=== PATIENT | female | born 1960 | race Caucasian/White ===

== ENCOUNTER 2020-03-25 12:14 | Inpatient (IN) ==
[2020-03-25] MEDS ORDERED: SODIUM CHLORIDE 0.9% 1,000 ML IV STA (13:29)
[2020-03-25 13:45] LABS: Basophils % 0.2 % (0.0-0.8); Eosinophils % 0.2 % (0.00-10.9); Immature Granulocytes % 0.8 %; Immature Granulocytes Absolute 0.07 #; Lymphocytes % 10.9 % (21.3-54.2); Mean Corpuscular HGB Conc 33.3 GM/DL (32-36); Mean Corpuscular Volume 94.5 FL (87-102); Mean Platelet Volume 9.9 FL (9.6-12.0); Monocytes % 7.8 % (1.7-12.7); Neutrophils % 80.1 % (38.7-73.9); Platelet Count 208 T/CUMM (130-400); Red Blood Count 3.81 MC/CUMM (3.8-5.5); Red Cell Distribution Width 13.4 % (9.3-17.3)
[2020-03-25 13:54] LABS: Alanine Aminotransferase 41 U/L (13-56); Albumin 3.5 G/DL (3.4-5.0); Alkaline Phosphatase 86 U/L (45-117); Aspartate Amino Transferase 56 U/L (0-37); Blood Urea Nitrogen 93 MG/DL (7-18); Calcium 8.3 MG/DL (8.5-10.1); Estimated Glom Filtration Rate 3 ML/MIN; Glucose 129 MG/DL (74-106); Osmolality,Calculated 290.8 MOS/KG (273-304); Total Protein 7.6 G/DL (6.4-8.3)
[2020-03-25 13:57] LABS: PT Patient Result 10.5 SECS (9.8-11.9)
[2020-03-25 14:04] LABS: Bacteria,Urine Occasional /HPF (Few); Bilirubin,Urine Negative (Negative); Blood, Urine Negative (Negative); Glucose,Urine (UA) Negative (Negative); Hyaline Casts,Urine 38 /LPF (0-3); Ketones,Urine Negative (Negative); Mucus,Urine Occasional /LPF (Occasional); Nitrite,Urine Negative (Negative); Protein,Urine 100 MG/DL; Squamous Epithelial Cell,Urine Occasional /HPF (0-10); Urine Appearance CLOUDY (Clear); Urine Color Amber (Yellow); Urine Specific Gravity 1.018 (1.001-1.035); Urine Urobilinogen < 2.0 EU/DL (0.2-1.0); WBC,Urine 6 /HPF (0-6)
[2020-03-25 14:06] LABS: Barbiturates Screen,Urine Negative (Negative); Benzodiazepines Screen,Urine Negative (Negative); Cannabinoid Screen,Urine Negative (Negative); Opiate Screen,Urine Negative (Negative); Phencyclidine Screen,Urine Negative (Negative)
[2020-03-25] MEDS ORDERED: GLUCAGON 1 MG VIAL IM PRN ×2 (15:38)
[2020-03-25] MEDS ORDERED: DEXTROSE 50% 25 GM/50 ML VIAL IV PRN (15:38)
[2020-03-25] MEDS ORDERED: ONDANSETRON 4 MG/2 ML VIAL IV PRN (15:38)
[2020-03-25 16:17] LABS: Band Neutrophils 5 % (0-10); Lymphocytes 9 % (20-55); Segmented Neutrophils 80 % (50-85); Total Cells Counted 100
[2020-03-25 16:18] LABS: Platelet Estimate Normal
[2020-03-25] MEDS: SODIUM CHLORIDE 0.9% 1,000 ML IV SCH (16:55)
[2020-03-25] MEDS: INSULIN LISPRO 100 UNIT/ML SUBCUT SCH ×2 (16:55→20:48)
[2020-03-25] MEDS: PHENYLEPHRINE DRIP 40 MG/250 ML PREMIX IV PRN ×2 (16:55→21:59)
[2020-03-25 19:10] LABS: Hematocrit 36.6 VOL% (35.7-47.0)
[2020-03-25] MEDS: ALBUTEROL/IPRATROPIUM 3 ML NEB RESP TX SCH (19:28)
[2020-03-25] MEDS: DEXTROSE 50% 25 GM/50 ML VIAL IV PRN (20:47)
[2020-03-26] MEDS: ALBUTEROL/IPRATROPIUM 3 ML NEB RESP TX SCH ×4 (00:03→19:21)
[2020-03-26] MEDS: PHENYLEPHRINE DRIP 40 MG/250 ML PREMIX IV PRN ×8 (01:32→22:00)
[2020-03-26] MEDS: DEXTROSE 10% 1,000 ML IV SCH ×2 (01:50→22:21)
[2020-03-26 03:33] LABS: Alanine Aminotransferase 39 U/L (13-56); Albumin 2.9 G/DL (3.4-5.0); Alkaline Phosphatase 86 U/L (45-117); Aspartate Amino Transferase 54 U/L (0-37); Blood Urea Nitrogen 97 MG/DL (7-18); Calcium 8.1 MG/DL (8.5-10.1); Estimated Glom Filtration Rate 3 ML/MIN; Glucose 53 MG/DL (74-106); Osmolality,Calculated 292.4 MOS/KG (273-304); Total Protein 7.4 G/DL (6.4-8.3); Troponin I < 0.015 NG/ML (0.00-0.045)
[2020-03-26 04:31] LABS: PT Patient Result 10.5 SECS (9.8-11.9)
[2020-03-26 04:41] LABS: Hematocrit 37.7 VOL% (35.7-47.0); Hemoglobin 12.3 GM/DL (12.0-16.0)
[2020-03-26] MEDS: DEXTROSE 50% 25 GM/50 ML VIAL IV PRN ×2 (05:00→08:36)
[2020-03-26] MEDS: SODIUM CHLORIDE 0.9% 1,000 ML IV SCH (05:33)
[2020-03-26 05:36] LABS: Basophils # 0.1 10*3/uL (0.0-0.2); Basophils % 0.5 % (0.0-0.8); Eosinophils % 0.1 % (0.00-10.9); Hematocrit 36.7 VOL% (35.7-47.0); Hemoglobin 11.9 GM/DL (12.0-16.0); Immature Granulocytes % 1.2 %; Immature Granulocytes Absolute 0.14 #; Lymphocytes # 0.9 10*3/uL (1.4-4.0); Lymphocytes % 7.5 % (21.3-54.2); Mean Corpuscular HGB Conc 32.4 GM/DL (32-36); Mean Corpuscular Volume 94.1 FL (87-102); Mean Platelet Volume 10.1 FL (9.6-12.0); Monocytes % 11.3 % (1.7-12.7); Neutrophils % 79.4 % (38.7-73.9); Platelet Count 247 T/CUMM (130-400); Red Cell Distribution Width 13.4 % (9.3-17.3)
[2020-03-26 06:01] LABS: Band Neutrophils 11 % (0-10); Lymphocytes 6 % (20-55); Microcytosis Slight; Myelocytes 1 %; Segmented Neutrophils 71 % (50-85); Total Cells Counted 100
[2020-03-26 06:02] LABS: Platelet Estimate Normal
[2020-03-26 07:21] LABS: Hematocrit 35.7 VOL% (35.7-47.0); Hemoglobin 11.6 GM/DL (12.0-16.0)
[2020-03-26] MEDS: INSULIN LISPRO 100 UNIT/ML SUBCUT SCH ×4 (07:58→22:21)
[2020-03-26] MEDS: PANTOPRAZOLE 40 MG VIAL IV SCH ×2 (09:48→22:01)
[2020-03-26] MEDS: SODIUM BICARB INJ 150 MEQ in DEXTROSE 5% 850 ML IV SCH ×2 (09:48→20:20)
[2020-03-26] MEDS: HYDROCORTISONE 100 MG VIAL IV SCH ×2 (10:03→17:09)
[2020-03-26] MEDS: POLYETHYLENE GLYCOL POWDER 17 GM PACK PO SCH (22:07)
[2020-03-27] MEDS: ALBUTEROL/IPRATROPIUM 3 ML NEB RESP TX SCH ×4 (00:08→19:07)
[2020-03-27] MEDS: INSULIN LISPRO 100 UNIT/ML SUBCUT SCH ×6 (00:27→21:08)
[2020-03-27] MEDS: PHENYLEPHRINE DRIP 40 MG/250 ML PREMIX IV PRN ×2 (02:20→09:55)
[2020-03-27 04:20] LABS: Basophils % 0.4 % (0.0-0.8); Hematocrit 32.1 VOL% (35.7-47.0); Hemoglobin 10.8 GM/DL (12.0-16.0); Immature Granulocytes % 1.8 %; Immature Granulocytes Absolute 0.09 #; Lymphocytes # 0.4 10*3/uL (1.4-4.0); Lymphocytes % 7.9 % (21.3-54.2); Mean Corpuscular HGB Conc 33.6 GM/DL (32-36); Mean Corpuscular Volume 90.7 FL (87-102); Mean Platelet Volume 9.6 FL (9.6-12.0); Monocytes % 8.6 % (1.7-12.7); Neutrophils % 81.3 % (38.7-73.9); Platelet Count 222 T/CUMM (130-400); Red Blood Count 3.54 MC/CUMM (3.8-5.5); Red Cell Distribution Width 13.3 % (9.3-17.3); White Blood Count 4.9 T/CUMM (4-12)
[2020-03-27 04:21] LABS: Calcium 7.6 MG/DL (8.5-10.1); Osmolality,Calculated 310.7 MOS/KG (273-304)
[2020-03-27 05:35] LABS: Band Neutrophils 17 % (0-10); Hypochromasia Slight; Lymphocytes 7 % (20-55); Metamyelocytes 3 %; Myelocytes 1 %; Platelet Estimate Normal; Segmented Neutrophils 64 % (50-85); Total Cells Counted 100
[2020-03-27] MEDS: HYDROCORTISONE 100 MG VIAL IV SCH ×2 (05:48→16:20)
[2020-03-27] MEDS: SODIUM BICARB INJ 150 MEQ in DEXTROSE 5% 850 ML IV SCH ×2 (06:24→16:19)
[2020-03-27] MEDS: PANTOPRAZOLE 40 MG VIAL IV SCH ×2 (09:55→21:11)
[2020-03-27] MEDS: POLYETHYLENE GLYCOL POWDER 17 GM PACK PO SCH ×3 (09:55→21:09)
[2020-03-27] MEDS: DEXTROSE 10% 1,000 ML IV SCH (17:22)
[2020-03-27] MEDS: LACTULOSE 20 GM/30 ML UDCUP PO SCH (21:10)
[2020-03-28] MEDS: INSULIN LISPRO 100 UNIT/ML SUBCUT SCH ×6 (00:22→20:29)
[2020-03-28] MEDS: ALBUTEROL/IPRATROPIUM 3 ML NEB RESP TX SCH ×4 (00:42→19:07)
[2020-03-28] MEDS: ACETAMINOPHEN 325 MG TABLET PO PRN (00:50)
[2020-03-28] MEDS: SODIUM BICARB INJ 150 MEQ in DEXTROSE 5% 850 ML IV SCH (02:11)
[2020-03-28 04:12] LABS: Basophils % 0.5 % (0.0-0.8); Hematocrit 31.5 VOL% (35.7-47.0); Hemoglobin 10.9 GM/DL (12.0-16.0); Immature Granulocytes % 1.2 %; Immature Granulocytes Absolute 0.05 #; Lymphocytes # 0.4 10*3/uL (1.4-4.0); Lymphocytes % 9.7 % (21.3-54.2); Mean Corpuscular HGB Conc 34.6 GM/DL (32-36); Mean Corpuscular Volume 88.5 FL (87-102); Mean Platelet Volume 9.3 FL (9.6-12.0); Monocytes % 8.2 % (1.7-12.7); Neutrophils % 80.4 % (38.7-73.9); Platelet Count 219 T/CUMM (130-400); Red Blood Count 3.56 MC/CUMM (3.8-5.5)
[2020-03-28 04:31] LABS: Calcium 8.9 MG/DL (8.5-10.1); Osmolality,Calculated 299.5 MOS/KG (273-304)
[2020-03-28 04:46] LABS: Band Neutrophils 18 % (0-10); Lymphocytes 15 % (20-55); Platelet Estimate Normal; Segmented Neutrophils 56 % (50-85); Total Cells Counted 100
[2020-03-28 04:47] LABS: Hypochromasia Slight; Microcytosis Slight
[2020-03-28] MEDS: HYDROCORTISONE 100 MG VIAL IV SCH (04:58)
[2020-03-28] MEDS: LACTULOSE 20 GM/30 ML UDCUP PO SCH (08:26)
[2020-03-28] MEDS: PANTOPRAZOLE 40 MG VIAL IV SCH ×2 (08:27→21:14)
[2020-03-28] MEDS ORDERED: MAGNESIUM SULF RIDER 2 GM in PREMIX 1 EACH IV ONE (09:00)
[2020-03-28] MEDS: POTASSIUM CHLORIDE INJ 10 MEQ in SODIUM CHLORIDE 0.45% 1,000 ML IV SCH (10:05)
[2020-03-28] MEDS ORDERED: POTASSIUM CHLORIDE 20 MEQ TABLET PO ONE (11:00)
[2020-03-28] MEDS ORDERED: MORPHINE 4 MG/1 ML VIAL IV ONE (11:15)
[2020-03-28] MEDS: POTASSIUM CHLORIDE RIDER 10 MEQ in PREMIX 1 EACH IV SCH ×2 (11:42→13:48)
[2020-03-28] MEDS: DEXTROSE 10% 1,000 ML IV SCH (14:04)
[2020-03-28] MEDS: BUDESONIDE/FORMOTEROL 80-4.5 INHALER 6.9 GM INH SCH (21:14)
[2020-03-29] MEDS: POTASSIUM CHLORIDE INJ 10 MEQ in SODIUM CHLORIDE 0.45% 1,000 ML IV SCH ×2 (00:22→14:16)
[2020-03-29] MEDS: ALBUTEROL/IPRATROPIUM 3 ML NEB RESP TX SCH ×4 (01:00→19:59)
[2020-03-29] MEDS: INSULIN LISPRO 100 UNIT/ML SUBCUT SCH ×6 (01:05→21:28)
[2020-03-29 06:09] LABS: Basophils % 0.7 % (0.0-0.8); Hematocrit 30.8 VOL% (35.7-47.0); Hemoglobin 10.1 GM/DL (12.0-16.0); Immature Granulocytes Absolute 0.09 #; Lymphocytes # 0.5 10*3/uL (1.4-4.0); Lymphocytes % 11.2 % (21.3-54.2); Mean Corpuscular HGB Conc 32.8 GM/DL (32-36); Mean Corpuscular Volume 92.8 FL (87-102); Mean Platelet Volume 9.1 FL (9.6-12.0); Monocytes % 7.3 % (1.7-12.7); NRBC # 0.02 10*3/uL; Neutrophils % 78.8 % (38.7-73.9); Platelet Count 243 T/CUMM (130-400); Red Blood Count 3.32 MC/CUMM (3.8-5.5); White Blood Count 4.6 T/CUMM (4-12)
[2020-03-29 06:36] LABS: Band Neutrophils 16 % (0-10); Hypochromasia 2+; Lymphocytes 12 % (20-55); Metamyelocytes 1 %; Nucleated Red Blood Cells 1 (0-5); Platelet Estimate Normal; Segmented Neutrophils 64 % (50-85); Total Cells Counted 100
[2020-03-29 06:37] LABS: Polychromasia Few
[2020-03-29 06:38] LABS: Calcium 9.1 MG/DL (8.5-10.1); Osmolality,Calculated 297.4 MOS/KG (273-304)
[2020-03-29] MEDS: PANTOPRAZOLE 40 MG VIAL IV SCH ×2 (08:34→21:29)
[2020-03-29] MEDS: BUDESONIDE/FORMOTEROL 80-4.5 INHALER 6.9 GM INH SCH ×2 (09:25→21:29)
[2020-03-29] MEDS: ACETAMINOPHEN 325 MG TABLET PO PRN (12:15)
[2020-03-29] MEDS ORDERED: diphenhydrAMINE 50 MG/1 ML VIAL IV ONE (17:41)
[2020-03-29] MEDS ORDERED: ZIPRASIDONE 20 MG/1 ML VIAL IM ONE (17:41)
[2020-03-30] MEDS: ALBUTEROL/IPRATROPIUM 3 ML NEB RESP TX SCH ×4 (00:23→19:50)
[2020-03-30] MEDS: INSULIN LISPRO 100 UNIT/ML SUBCUT SCH ×6 (01:08→20:41)
[2020-03-30] MEDS: POTASSIUM CHLORIDE INJ 10 MEQ in SODIUM CHLORIDE 0.45% 1,000 ML IV SCH ×2 (02:47→13:42)
[2020-03-30 05:01] LABS: Basophils % 0.5 % (0.0-0.8); Hematocrit 31.1 VOL% (35.7-47.0); Hemoglobin 10.1 GM/DL (12.0-16.0); Immature Granulocytes % 1.6 %; Lymphocytes # 0.5 10*3/uL (1.4-4.0); Lymphocytes % 8.1 % (21.3-54.2); Mean Corpuscular HGB Conc 32.5 GM/DL (32-36); Mean Corpuscular Volume 95.4 FL (87-102); Monocytes % 6.3 % (1.7-12.7); NRBC # 0.04 10*3/uL; Neutrophils % 83.5 % (38.7-73.9); Platelet Count 219 T/CUMM (130-400); Red Blood Count 3.26 MC/CUMM (3.8-5.5); Red Cell Distribution Width 12.9 % (9.3-17.3); White Blood Count 6.2 T/CUMM (4-12)
[2020-03-30 05:20] LABS: Osmolality,Calculated 298.3 MOS/KG (273-304)
[2020-03-30 05:35] LABS: Band Neutrophils 4 % (0-10); Eosinophils 1 % (0-10); Lymphocytes 12 % (20-55); Platelet Estimate Normal; Segmented Neutrophils 82 % (50-85); Total Cells Counted 100
[2020-03-30 05:36] LABS: Hypochromasia Slight
[2020-03-30] MEDS: PANTOPRAZOLE 40 MG VIAL IV SCH ×2 (09:06→20:41)
[2020-03-30] MEDS: NICOTINE 21 MG/24 HR PATCH TRANSDERM PRN (09:07)
[2020-03-30] MEDS: BUDESONIDE/FORMOTEROL 80-4.5 INHALER 6.9 GM INH SCH ×2 (09:11→20:41)
[2020-03-30] MEDS ORDERED: hydrALAZINE 20 MG/1 ML VIAL IV PRN (11:40)
[2020-03-30] MEDS: ACETAMINOPHEN 325 MG TABLET PO PRN (20:40)
[2020-03-30] MEDS ORDERED: LEVOFLOXACIN INJ 750 MG in PREMIX 1 EACH IV SCH (22:30)
[2020-03-30 22:54] LABS: Basophils % 0.4 % (0.0-0.8); Hematocrit 34.7 VOL% (35.7-47.0); Hemoglobin 11.2 GM/DL (12.0-16.0); Immature Granulocytes % 1.6 %; Immature Granulocytes Absolute 0.16 #; Lymphocytes # 0.7 10*3/uL (1.4-4.0); Lymphocytes % 6.8 % (21.3-54.2); Mean Corpuscular HGB Conc 32.3 GM/DL (32-36); Mean Corpuscular Volume 96.1 FL (87-102); Mean Platelet Volume 8.9 FL (9.6-12.0); Monocytes % 6.3 % (1.7-12.7); NRBC # 0.04 10*3/uL; Neutrophils % 84.9 % (38.7-73.9); Platelet Count 209 T/CUMM (130-400); Red Blood Count 3.61 MC/CUMM (3.8-5.5); Red Cell Distribution Width 12.8 % (9.3-17.3); White Blood Count 9.7 T/CUMM (4-12)
[2020-03-30] MEDS: IBUPROFEN 600 MG TABLET PO PRN (22:59)
[2020-03-30] MEDS ORDERED: LORazepam 2 MG/1 ML VIAL ONE (23:50)
[2020-03-30 23:52] LABS: Bacteria,Urine Many /HPF (Few); Bilirubin,Urine Negative (Negative); Blood, Urine Large mg/dL (Negative); Glucose,Urine (UA) Negative (Negative); Hyaline Casts,Urine 68 /LPF (0-3); Ketones,Urine 5 mg/dL (Negative); Mucus,Urine Moderate /LPF (Occasional); Nitrite,Urine Positive (Negative); Protein,Urine 100 MG/DL; RBC,Urine 102 /HPF (0-4); Urine Appearance CLOUDY (Clear); Urine Color Yellow (Yellow); Urine Specific Gravity 1.019 (1.001-1.035); Urine Urobilinogen < 2.0 EU/DL (0.2-1.0); WBC,Urine 1695 /HPF (0-6)
[2020-03-31] MEDS ORDERED: LORazepam 2 MG/1 ML VIAL ONE (00:05)
[2020-03-31] MEDS ORDERED: LORazepam 2 MG/1 ML VIAL IV ONE ×2 (00:06→12:04)
[2020-03-31] MEDS: ALBUTEROL/IPRATROPIUM 3 ML NEB RESP TX SCH ×4 (00:12→19:53)
[2020-03-31] MEDS ORDERED: GENTAMICIN INJ 100 MG in PREMIX 1 EACH IV SCH (00:30)
[2020-03-31] MEDS: INSULIN LISPRO 100 UNIT/ML SUBCUT SCH ×6 (01:23→21:49)
[2020-03-31] MEDS ORDERED: GENTAMICIN INJ 500 MG in SODIUM CHLORIDE 0.9% 100 ML IV SCH (02:00)
[2020-03-31 04:32] LABS: Band Neutrophils 1 % (0-10); Lymphocytes 9 % (20-55); Segmented Neutrophils 86 % (50-85); Total Cells Counted 100
[2020-03-31 04:36] LABS: Hypochromasia 1+; Platelet Estimate Normal; Polychromasia Few
[2020-03-31] MEDS: POTASSIUM CHLORIDE INJ 10 MEQ in SODIUM CHLORIDE 0.45% 1,000 ML IV SCH (04:46)
[2020-03-31 05:29] LABS: Basophils % 0.2 % (0.0-0.8); Hemoglobin 10.6 GM/DL (12.0-16.0); Immature Granulocytes % 1.5 %; Immature Granulocytes Absolute 0.13 #; Lymphocytes # 0.8 10*3/uL (1.4-4.0); Lymphocytes % 8.9 % (21.3-54.2); Mean Corpuscular HGB Conc 32.1 GM/DL (32-36); Mean Corpuscular Volume 96.2 FL (87-102); Mean Platelet Volume 8.9 FL (9.6-12.0); NRBC # 0.03 10*3/uL; Neutrophils % 82.4 % (38.7-73.9); Platelet Count 190 T/CUMM (130-400); Red Blood Count 3.43 MC/CUMM (3.8-5.5); White Blood Count 8.9 T/CUMM (4-12)
[2020-03-31 05:46] LABS: Albumin 2.4 G/DL (3.4-5.0); Bilirubin,Total 0.4 MG/DL (0.2-1.0); Calcium 8.3 MG/DL (8.5-10.1); Osmolality,Calculated 312.3 MOS/KG (273-304); Total Protein 6.7 G/DL (6.4-8.3)
[2020-03-31 05:55] LABS: Band Neutrophils 2 % (0-10); Hypochromasia 1+; Lymphocytes 7 % (20-55); Nucleated Red Blood Cells 1 (0-5); Ovalocytes Slight; Platelet Estimate Adequate; Segmented Neutrophils 82 % (50-85); Total Cells Counted 100
[2020-03-31] MEDS: BUDESONIDE/FORMOTEROL 80-4.5 INHALER 6.9 GM INH SCH ×2 (10:06→20:19)
[2020-03-31] MEDS: LORazepam 2 MG/1 ML VIAL IV PRN ×2 (10:11)
[2020-03-31] MEDS: NICOTINE 21 MG/24 HR PATCH TRANSDERM PRN (10:14)
[2020-03-31] MEDS: PANTOPRAZOLE 40 MG VIAL IV SCH ×2 (10:18→20:11)
[2020-03-31] MEDS ORDERED: METOPROLOL TARTRATE 5 MG/5 ML VIAL IV ONE (11:54)
[2020-03-31] MEDS: POTASSIUM CHLORIDE INJ 40 MEQ in SODIUM CHLORIDE 0.45% 1,000 ML IV SCH (14:07)
[2020-03-31] MEDS ORDERED: DEXTROSE 50% 25 GM/50 ML VIAL IV PRN (16:45)
[2020-03-31] MEDS ORDERED: GLUCAGON 1 MG VIAL IM PRN (16:45)
[2020-03-31] MEDS: ACETAMINOPHEN 325 MG TABLET PO PRN (23:27)
[2020-04-01] MEDS: ALBUTEROL/IPRATROPIUM 3 ML NEB RESP TX SCH ×4 (00:12→20:01)
[2020-04-01] MEDS: IBUPROFEN 600 MG TABLET PO PRN (01:25)
[2020-04-01] MEDS: INSULIN LISPRO 100 UNIT/ML SUBCUT SCH ×6 (01:50→20:19)
[2020-04-01 06:10] LABS: Basophils % 0.2 % (0.0-0.8); Hematocrit 38.5 VOL% (35.7-47.0); Immature Granulocytes % 0.8 %; Immature Granulocytes Absolute 0.08 #; Lymphocytes % 10.6 % (21.3-54.2); Mean Corpuscular HGB Conc 31.2 GM/DL (32-36); Mean Platelet Volume 9.6 FL (9.6-12.0); Monocytes % 6.8 % (1.7-12.7); NRBC # 0.02 10*3/uL; Neutrophils % 81.6 % (38.7-73.9); Platelet Count 175 T/CUMM (130-400); Red Blood Count 3.89 MC/CUMM (3.8-5.5); Red Cell Distribution Width 13.2 % (9.3-17.3); White Blood Count 9.7 T/CUMM (4-12)
[2020-04-01 06:34] LABS: Calcium 8.9 MG/DL (8.5-10.1); Osmolality,Calculated 328.6 MOS/KG (273-304)
[2020-04-01] MEDS: PANTOPRAZOLE 40 MG VIAL IV SCH ×2 (08:49→20:20)
[2020-04-01] MEDS: POTASSIUM CHLORIDE INJ 40 MEQ in SODIUM CHLORIDE 0.45% 1,000 ML IV SCH (08:49)
[2020-04-01] MEDS ORDERED: METOPROLOL TARTRATE 5 MG/5 ML VIAL IV ONE (08:52)
[2020-04-01] MEDS: NICOTINE 21 MG/24 HR PATCH TRANSDERM PRN (08:55)
[2020-04-01] MEDS ORDERED: ACETAMINOPHEN INJ 1,000 MG in PREMIX 1 EACH IV ONE (08:57)
[2020-04-01] MEDS: ACETAMINOPHEN 325 MG TABLET PO PRN (08:57)
[2020-04-01] MEDS ORDERED: LEVOFLOXACIN INJ 750 MG in PREMIX 1 EACH IV ONE (09:00)
[2020-04-01] MEDS: BUDESONIDE/FORMOTEROL 80-4.5 INHALER 6.9 GM INH SCH ×2 (09:02→20:22)
[2020-04-01 10:04] LABS: ABG Base Excess 4.5 MMOL/L (-2.5-2.5); ABG HCO3 28.8 MMOL/L (20-26); ABG Oxygen Saturation 95.5 % (95-100); ABG PCO2 41.8 MM HG (35-48); ABG PH 7.456 (7.35-7.45); ABG PO2 84.7 MM HG (80-95); ABG TCO2 30.1 MMOL/L (23-27); Allen Test Positive
[2020-04-01] MEDS ORDERED: HALOPERIDOL 5 MG/ML AMP IV ONE (11:03)
[2020-04-01] MEDS ORDERED: HALOPERIDOL 5 MG/ML AMP ONE (11:23)
[2020-04-01] MEDS: LACTULOSE 20 GM/30 ML UDCUP NG SCH ×2 (11:35→18:20)
[2020-04-01 12:27] LABS: HIV Antigen/Antibody Result Nonreactive (Nonreactive)
[2020-04-01] MEDS: metroNIDAZOLE INJ 500 MG in PREMIX 1 EACH IV SCH (15:25)
[2020-04-01] MEDS: ASPIRIN EC 81 MG TABLET PO SCH (15:27)
[2020-04-01] MEDS: METOPROLOL TARTRATE 25 MG TABLET PO SCH ×2 (15:27→20:22)
[2020-04-01] MEDS: DEXT 5% NACL 0.45% KCL 40 MEQ 40 MEQ/1,000 ML BAG IV SCH (15:33)
[2020-04-01] MEDS ORDERED: HEPARIN 5,000 UNIT/1 ML VIAL SUBCUT SCH (16:00)
[2020-04-01] MEDS: ENOXAPARIN 80 MG/0.8 ML SYRINGE SUBCUT SCH (18:19)
[2020-04-01 18:23] LABS: Glucose,CSF 111 MG/DL (40-70)
[2020-04-01 18:28] LABS: Lymphocytes,CSF 71 %; Monocytes,CSF 29 %; Red Blood Cell,CSF 162 C/CUMM; White Blood Cell,CSF 2 C/CUMM
[2020-04-01 18:29] LABS: Appearance,CSF Clear
[2020-04-02] MEDS: ACETAMINOPHEN 325 MG TABLET PO PRN ×3 (00:18→23:53)
[2020-04-02] MEDS: INSULIN LISPRO 100 UNIT/ML SUBCUT SCH ×6 (00:18→20:44)
[2020-04-02] MEDS: metroNIDAZOLE INJ 500 MG in PREMIX 1 EACH IV SCH ×4 (00:24→23:53)
[2020-04-02] MEDS: LACTULOSE 20 GM/30 ML UDCUP NG SCH ×5 (00:24→23:52)
[2020-04-02] MEDS: ALBUTEROL/IPRATROPIUM 3 ML NEB RESP TX SCH ×2 (01:02→07:21)
[2020-04-02 05:54] LABS: Basophils % 0.2 % (0.0-0.8); Hematocrit 39.9 VOL% (35.7-47.0); Hemoglobin 12.2 GM/DL (12.0-16.0); Immature Granulocytes % 0.7 %; Immature Granulocytes Absolute 0.09 #; Lymphocytes # 1.7 10*3/uL (1.4-4.0); Lymphocytes % 13.9 % (21.3-54.2); Mean Corpuscular HGB Conc 30.6 GM/DL (32-36); Mean Corpuscular Volume 99.8 FL (87-102); Mean Platelet Volume 10.6 FL (9.6-12.0); Monocytes % 3.8 % (1.7-12.7); NRBC # 0.03 10*3/uL; Neutrophils % 81.4 % (38.7-73.9); Platelet Count 155 T/CUMM (130-400); Red Cell Distribution Width 13.4 % (9.3-17.3)
[2020-04-02 06:09] LABS: Alanine Aminotransferase 49 U/L (13-56); Albumin 2.5 G/DL (3.4-5.0); Alkaline Phosphatase 65 U/L (45-117); Aspartate Amino Transferase 59 U/L (0-37); Bilirubin,Total < 0.39 MG/DL (0.2-1.0); Blood Urea Nitrogen 77 MG/DL (7-18); Calcium 7.9 MG/DL (8.5-10.1); Estimated Glom Filtration Rate 19 ML/MIN; Ferritin 286.1 ng/ml (8-252); Glucose 269 MG/DL (74-106); Osmolality,Calculated 343.9 MOS/KG (273-304); Total Protein 6.7 G/DL (6.4-8.3)
[2020-04-02 06:51] LABS: Band Neutrophils 4 % (0-10); Lymphocytes 17 % (20-55); Nucleated Red Blood Cells 3 (0-5); Platelet Estimate Normal; Segmented Neutrophils 77 % (50-85); Total Cells Counted 100
[2020-04-02 06:52] LABS: Anisocytosis 2+; Macrocytosis Slight; Smudge Cells Few
[2020-04-02] MEDS ORDERED: MAGNESIUM SULF RIDER 2 GM in PREMIX 1 EACH IV PRN (08:38)
[2020-04-02] MEDS ORDERED: MAGNESIUM SULF RIDER 4 GM in PREMIX 1 EACH IV PRN (08:38)
[2020-04-02] MEDS: DEXT 5% NACL 0.45% KCL 40 MEQ 40 MEQ/1,000 ML BAG IV SCH (09:17)
[2020-04-02] MEDS: PANTOPRAZOLE 40 MG VIAL IV SCH ×2 (09:20→20:07)
[2020-04-02] MEDS: ASPIRIN EC 81 MG TABLET PO SCH (09:20)
[2020-04-02] MEDS: METOPROLOL TARTRATE 25 MG TABLET PO SCH ×3 (09:20→20:49)
[2020-04-02] MEDS: BUDESONIDE/FORMOTEROL 80-4.5 INHALER 6.9 GM INH SCH ×2 (09:21→20:49)
[2020-04-02] MEDS: POTASSIUM CHLORIDE INJ 40 MEQ in DEXTROSE 5% LACTATED RINGERS 1,000 ML IV SCH (10:40)
[2020-04-02] MEDS ORDERED: BISACODYL 10 MG SUPP RECTAL ONE (11:59)
[2020-04-02] MEDS: methylPREDNISolone SOD SUC 40 MG/1 ML VIAL IV SCH ×2 (12:30→18:39)
[2020-04-02] MEDS ORDERED: MAGNESIUM SULF RIDER 2 GM in PREMIX 1 EACH IV ONE (12:34)
[2020-04-02] MEDS ORDERED: POTASSIUM CHLORIDE 20 MEQ TABLET PO ONE (12:34)
[2020-04-02] MEDS: LEVALBUTEROL 1.25 MG/3 ML NEB RESP TX SCH ×2 (12:40→19:34)
[2020-04-02] MEDS: ENOXAPARIN 80 MG/0.8 ML SYRINGE SUBCUT SCH (18:37)
[2020-04-03] MEDS: INSULIN LISPRO 100 UNIT/ML SUBCUT SCH ×6 (00:36→20:31)
[2020-04-03] MEDS: LEVALBUTEROL 1.25 MG/3 ML NEB RESP TX SCH ×4 (00:58→19:22)
[2020-04-03] MEDS: methylPREDNISolone SOD SUC 40 MG/1 ML VIAL IV SCH ×3 (03:43→18:42)
[2020-04-03] MEDS: LACTULOSE 20 GM/30 ML UDCUP NG SCH ×3 (06:06→17:06)
[2020-04-03 07:03] LABS: Basophils % 0.2 % (0.0-0.8); Hematocrit 34.9 VOL% (35.7-47.0); Hemoglobin 10.4 GM/DL (12.0-16.0); Immature Granulocytes % 0.7 %; Immature Granulocytes Absolute 0.07 #; Lymphocytes # 0.6 10*3/uL (1.4-4.0); Lymphocytes % 6.2 % (21.3-54.2); Mean Corpuscular HGB Conc 29.8 GM/DL (32-36); Mean Corpuscular Volume 103.6 FL (87-102); Mean Platelet Volume 11.6 FL (9.6-12.0); Monocytes % 1.7 % (1.7-12.7); NRBC # 0.02 10*3/uL; Neutrophils % 91.2 % (38.7-73.9); Platelet Count 111 T/CUMM (130-400); Red Blood Count 3.37 MC/CUMM (3.8-5.5); Red Cell Distribution Width 13.8 % (9.3-17.3); White Blood Count 10.3 T/CUMM (4-12)
[2020-04-03 07:10] LABS: Calcium 8.2 MG/DL (8.5-10.1); Osmolality,Calculated 356.9 MOS/KG (273-304); Platelet Estimate Adequate
[2020-04-03 07:11] LABS: Anisocytosis 1+
[2020-04-03 07:12] LABS: Macrocytosis 1+
[2020-04-03 08:13] LABS: Band Neutrophils 2 % (0-10); Lymphocytes 1 % (20-55); Segmented Neutrophils 96 % (50-85); Total Cells Counted 100
[2020-04-03] MEDS ORDERED: LEVOFLOXACIN INJ 500 MG in PREMIX 1 EACH IV SCH (09:00)
[2020-04-03] MEDS: POTASSIUM CHLORIDE INJ 40 MEQ in DEXTROSE 5% LACTATED RINGERS 1,000 ML IV SCH (09:02)
[2020-04-03] MEDS: ACETAMINOPHEN 325 MG TABLET PO PRN (09:08)
[2020-04-03] MEDS: PANTOPRAZOLE 40 MG VIAL IV SCH ×2 (09:09→20:36)
[2020-04-03] MEDS: INSULIN GLARGINE 100 UNIT/ML SUBCUT SCH (09:09)
[2020-04-03] MEDS: METOPROLOL TARTRATE 25 MG TABLET PO SCH ×3 (09:09→20:36)
[2020-04-03] MEDS: BUDESONIDE/FORMOTEROL 80-4.5 INHALER 6.9 GM INH SCH ×2 (09:10→20:37)
[2020-04-03] MEDS: ASPIRIN EC 81 MG TABLET PO SCH (09:10)
[2020-04-03] MEDS: DEXTROSE 5% 1,000 ML IV SCH ×2 (09:11→23:53)
[2020-04-03 09:59] LABS: Ferritin 351.2 ng/ml (8-252)
[2020-04-03] MEDS ORDERED: VANCOMYCIN INJ 750 MG in SODIUM CHLORIDE 0.9% 250 ML IV ONE (11:00)
[2020-04-03 11:59] LABS: Bilirubin,Urine Negative (Negative); Blood, Urine Moderate mg/dL (Negative); Glucose,Urine (UA) 50 mg/dL (Negative); Ketones,Urine Negative (Negative); Mucus,Urine Occasional /LPF (Occasional); Nitrite,Urine Negative (Negative); Protein,Urine Negative; RBC,Urine 184 /HPF (0-4); Urine Appearance CLOUDY (Clear); Urine Color Yellow (Yellow); Urine Specific Gravity 1.018 (1.001-1.035); Urine Urobilinogen < 2.0 EU/DL (0.2-1.0)
[2020-04-03] MEDS: metroNIDAZOLE INJ 500 MG in PREMIX 1 EACH IV SCH ×2 (13:42→17:05)
[2020-04-03] MEDS: ENOXAPARIN 80 MG/0.8 ML SYRINGE SUBCUT SCH (17:06)
[2020-04-03 20:11] LABS: CMV PCR Source csf; Specimen Source csf
[2020-04-03 20:19] LABS: Epstein-Barr Virus Result Negative (Negative); Epstein-Barr Virus Source csf
[2020-04-03 20:20] LABS: Alanine Aminotransferase 63 U/L (13-56); Albumin 2.4 G/DL (3.4-5.0); Alkaline Phosphatase 52 U/L (45-117); Aspartate Amino Transferase 92 U/L (0-37); Bilirubin,Total < 0.39 MG/DL (0.2-1.0); Blood Urea Nitrogen 71 MG/DL (7-18); Calcium 8.1 MG/DL (8.5-10.1); Estimated Glom Filtration Rate 20 ML/MIN; Glucose 310 MG/DL (74-106); Osmolality,Calculated 350.5 MOS/KG (273-304); Total Protein 6.1 G/DL (6.4-8.3)
[2020-04-04] MEDS: LACTULOSE 20 GM/30 ML UDCUP NG SCH ×4 (00:01→17:54)
[2020-04-04] MEDS: DEXTROSE 5% 1,000 ML IV SCH ×4 (00:01→18:24)
[2020-04-04] MEDS: INSULIN LISPRO 100 UNIT/ML SUBCUT SCH ×6 (00:04→21:19)
[2020-04-04] MEDS: LEVALBUTEROL 1.25 MG/3 ML NEB RESP TX SCH ×4 (00:12→19:13)
[2020-04-04] MEDS: methylPREDNISolone SOD SUC 40 MG/1 ML VIAL IV SCH ×2 (03:03→12:17)
[2020-04-04 04:17] LABS: Basophils % 0.1 % (0.0-0.8); Hematocrit 32.7 VOL% (35.7-47.0); Hemoglobin 9.8 GM/DL (12.0-16.0); Immature Granulocytes % 0.9 %; Immature Granulocytes Absolute 0.09 #; Lymphocytes # 0.9 10*3/uL (1.4-4.0); Lymphocytes % 8.9 % (21.3-54.2); Mean Corpuscular Volume 103.8 FL (87-102); Mean Platelet Volume 12.2 FL (9.6-12.0); Monocytes % 2.1 % (1.7-12.7); NRBC # 0.06 10*3/uL; Platelet Count 108 T/CUMM (130-400); Red Blood Count 3.15 MC/CUMM (3.8-5.5); Red Cell Distribution Width 13.9 % (9.3-17.3); White Blood Count 10.4 T/CUMM (4-12)
[2020-04-04 04:31] LABS: Alanine Aminotransferase 65 U/L (13-56); Albumin 2.4 G/DL (3.4-5.0); Alkaline Phosphatase 53 U/L (45-117); Aspartate Amino Transferase 81 U/L (0-37); Bilirubin,Total < 0.39 MG/DL (0.2-1.0); Blood Urea Nitrogen 72 MG/DL (7-18); Calcium 8.3 MG/DL (8.5-10.1); Estimated Glom Filtration Rate 20 ML/MIN; Glucose 221 MG/DL (74-106); Osmolality,Calculated 347.3 MOS/KG (273-304); Total Protein 6.1 G/DL (6.4-8.3)
[2020-04-04] MEDS: metroNIDAZOLE INJ 500 MG in PREMIX 1 EACH IV SCH ×2 (08:19)
[2020-04-04] MEDS: ACETAMINOPHEN 325 MG TABLET PO PRN ×3 (08:21→13:30)
[2020-04-04] MEDS: ASPIRIN EC 81 MG TABLET PO SCH (08:22)
[2020-04-04] MEDS: METOPROLOL TARTRATE 25 MG TABLET PO SCH ×3 (08:22→20:50)
[2020-04-04] MEDS: BUDESONIDE/FORMOTEROL 80-4.5 INHALER 6.9 GM INH SCH (08:23)
[2020-04-04] MEDS: INSULIN GLARGINE 100 UNIT/ML SUBCUT SCH (09:01)
[2020-04-04] MEDS: PANTOPRAZOLE 40 MG VIAL IV SCH ×2 (09:45→20:48)
[2020-04-04] MEDS: POTASSIUM CHLORIDE RIDER 10 MEQ in PREMIX 1 EACH IV PRN (13:29)
[2020-04-04] MEDS ORDERED: INSULIN REGULAR 100 UNIT/ML IV ONE (15:38)
[2020-04-04] MEDS ORDERED: INSULIN GLARGINE 100 UNIT/ML SUBCUT ONE (15:39)
[2020-04-04] MEDS: ENOXAPARIN 30 MG/0.3 ML SYRINGE SUBCUT SCH (16:17)
[2020-04-04] MEDS: MEROPENEM 500 MG in SODIUM CHLORIDE 0.9% 100 ML IV SCH (16:18)
[2020-04-04] MEDS: ACETAMINOPHEN 325 MG TABLET PO SCH ×2 (17:54→20:50)
[2020-04-04] MEDS ORDERED: VANCOMYCIN INJ 1,250 MG in SODIUM CHLORIDE 0.9% 250 ML IV ONE (18:00)
[2020-04-05] MEDS: LEVALBUTEROL 1.25 MG/3 ML NEB RESP TX SCH ×4 (00:10→19:55)
[2020-04-05 00:31] LABS: Enterovirus PCR Source csf
[2020-04-05] MEDS: LACTULOSE 20 GM/30 ML UDCUP NG SCH ×4 (01:20→17:16)
[2020-04-05] MEDS: INSULIN LISPRO 100 UNIT/ML SUBCUT SCH ×6 (01:20→21:45)
[2020-04-05] MEDS: DEXTROSE 5% 1,000 ML IV SCH ×7 (01:27→16:42)
[2020-04-05] MEDS: MEROPENEM 500 MG in SODIUM CHLORIDE 0.9% 100 ML IV SCH ×2 (03:55→15:43)
[2020-04-05 07:54] LABS: Basophils % 0.1 % (0.0-0.8); Hematocrit 30.7 VOL% (35.7-47.0); Immature Granulocytes % 0.7 %; Immature Granulocytes Absolute 0.05 #; Lymphocytes # 0.9 10*3/uL (1.4-4.0); Mean Corpuscular HGB Conc 29.3 GM/DL (32-36); Mean Corpuscular Volume 103.7 FL (87-102); Mean Platelet Volume 12.5 FL (9.6-12.0); Monocytes % 2.2 % (1.7-12.7); NRBC # 0.02 10*3/uL; Platelet Count 105 T/CUMM (130-400); Red Blood Count 2.96 MC/CUMM (3.8-5.5); Red Cell Distribution Width 13.6 % (9.3-17.3); White Blood Count 7.4 T/CUMM (4-12)
[2020-04-05 08:08] LABS: Calcium 8.3 MG/DL (8.5-10.1); Osmolality,Calculated 339.9 MOS/KG (273-304)
[2020-04-05 08:55] LABS: Anisocytosis 1+; Macrocytosis Slight; Platelet Estimate Adequate
[2020-04-05] MEDS: PANTOPRAZOLE 40 MG VIAL IV SCH ×2 (09:11→21:44)
[2020-04-05] MEDS: predniSONE 20 MG TABLET PO SCH (09:12)
[2020-04-05] MEDS: INSULIN GLARGINE 100 UNIT/ML SUBCUT SCH (09:12)
[2020-04-05] MEDS: METOPROLOL TARTRATE 25 MG TABLET PO SCH ×2 (09:12→15:50)
[2020-04-05] MEDS: ASPIRIN EC 81 MG TABLET PO SCH (09:12)
[2020-04-05] MEDS: ACETAMINOPHEN 325 MG TABLET PO SCH ×5 (09:14→21:43)
[2020-04-05 13:20] LABS: M. Tuberculosis PCR Result Negative (Negative); M. Tuberculosis PCR Source csf
[2020-04-05] MEDS: POTASSIUM CHLORIDE RIDER 10 MEQ in PREMIX 1 EACH IV PRN ×2 (13:34→15:43)
[2020-04-05] MEDS: ENOXAPARIN 30 MG/0.3 ML SYRINGE SUBCUT SCH ×2 (15:43→16:42)
[2020-04-05 18:56] LABS: Adenovirus PCR Negative (Negative); Specimen Source csf
[2020-04-05] MEDS ORDERED: VANCOMYCIN INJ 1,250 MG in SODIUM CHLORIDE 0.9% 250 ML IV PRN (20:29)
[2020-04-05] MEDS ORDERED: VANCOMYCIN INJ 1,500 MG in SODIUM CHLORIDE 0.9% 500 ML IV ONE (21:30)
[2020-04-06] MEDS: LEVALBUTEROL 1.25 MG/3 ML NEB RESP TX SCH ×4 (00:50→20:00)
[2020-04-06] MEDS: INSULIN LISPRO 100 UNIT/ML SUBCUT SCH ×6 (01:06→21:46)
[2020-04-06] MEDS: LACTULOSE 20 GM/30 ML UDCUP NG SCH ×4 (01:06→17:34)
[2020-04-06] MEDS: METOPROLOL TARTRATE 25 MG TABLET PO SCH ×4 (02:49→21:46)
[2020-04-06] MEDS: MEROPENEM 500 MG in SODIUM CHLORIDE 0.9% 100 ML IV SCH ×3 (04:00→21:46)
[2020-04-06 06:19] LABS: Hematocrit 28.7 VOL% (35.7-47.0); Hemoglobin 8.6 GM/DL (12.0-16.0); Immature Granulocytes % 0.9 %; Immature Granulocytes Absolute 0.05 #; Lymphocytes # 0.7 10*3/uL (1.4-4.0); Lymphocytes % 12.6 % (21.3-54.2); Mean Corpuscular Volume 102.9 FL (87-102); NRBC # 0.02 10*3/uL; Neutrophils % 84.5 % (38.7-73.9); Platelet Count 100 T/CUMM (130-400); Red Blood Count 2.79 MC/CUMM (3.8-5.5); Red Cell Distribution Width 13.3 % (9.3-17.3); White Blood Count 5.6 T/CUMM (4-12)
[2020-04-06 06:38] LABS: Osmolality,Calculated 332.7 MOS/KG (273-304)
[2020-04-06] MEDS: DEXTROSE 5% 1,000 ML IV SCH ×4 (07:07→21:47)
[2020-04-06] MEDS: POTASSIUM CHLORIDE RIDER 10 MEQ in PREMIX 1 EACH IV PRN ×2 (08:41→12:20)
[2020-04-06] MEDS: PANTOPRAZOLE 40 MG VIAL IV SCH (08:43)
[2020-04-06] MEDS: ACETAMINOPHEN 325 MG TABLET PO SCH ×4 (08:44→21:46)
[2020-04-06] MEDS: ASPIRIN EC 81 MG TABLET PO SCH (08:44)
[2020-04-06] MEDS: predniSONE 20 MG TABLET PO SCH (08:44)
[2020-04-06] MEDS: INSULIN GLARGINE 100 UNIT/ML SUBCUT SCH (08:45)
[2020-04-06] MEDS: ENOXAPARIN 30 MG/0.3 ML SYRINGE SUBCUT SCH (16:24)
[2020-04-07] MEDS: LACTULOSE 20 GM/30 ML UDCUP NG SCH ×4 (02:04→17:00)
[2020-04-07] MEDS: INSULIN LISPRO 100 UNIT/ML SUBCUT SCH ×6 (02:27→20:24)
[2020-04-07] MEDS: DEXTROSE 5% 1,000 ML IV SCH ×3 (05:34→20:58)
[2020-04-07] MEDS: MEROPENEM 500 MG in SODIUM CHLORIDE 0.9% 100 ML IV SCH ×2 (05:35→12:52)
[2020-04-07 06:51] LABS: Eosinophils % 0.2 % (0.00-10.9); Hematocrit 29.7 VOL% (35.7-47.0); Hemoglobin 8.9 GM/DL (12.0-16.0); Immature Granulocytes % 0.4 %; Immature Granulocytes Absolute 0.02 #; Lymphocytes # 0.8 10*3/uL (1.4-4.0); Lymphocytes % 15.9 % (21.3-54.2); Mean Corpuscular Volume 102.1 FL (87-102); Mean Platelet Volume 12.3 FL (9.6-12.0); Monocytes % 2.1 % (1.7-12.7); Neutrophils % 81.4 % (38.7-73.9); Platelet Count 105 T/CUMM (130-400); Red Blood Count 2.91 MC/CUMM (3.8-5.5); Red Cell Distribution Width 13.1 % (9.3-17.3); White Blood Count 4.7 T/CUMM (4-12)
[2020-04-07] MEDS: LEVALBUTEROL 1.25 MG/3 ML NEB RESP TX SCH ×3 (07:06→19:12)
[2020-04-07 07:14] LABS: Calcium 8.4 MG/DL (8.5-10.1); Osmolality,Calculated 313.9 MOS/KG (273-304)
[2020-04-07 07:19] LABS: Hypochromasia 1+; Lymphocytes 17 % (20-55); Microcytosis 1+; Platelet Estimate Decreased; Segmented Neutrophils 80 % (50-85); Total Cells Counted 100
[2020-04-07] MEDS: INSULIN GLARGINE 100 UNIT/ML SUBCUT SCH (10:27)
[2020-04-07] MEDS: METOPROLOL TARTRATE 25 MG TABLET PO SCH ×3 (10:29→20:24)
[2020-04-07] MEDS: ASPIRIN EC 81 MG TABLET PO SCH (10:30)
[2020-04-07] MEDS: predniSONE 20 MG TABLET PO SCH (10:30)
[2020-04-07] MEDS: ACETAMINOPHEN 325 MG TABLET PO SCH ×4 (10:33→20:24)
[2020-04-07] MEDS: PANTOPRAZOLE 40 MG VIAL IV SCH (11:17)
[2020-04-07] MEDS: ENOXAPARIN 30 MG/0.3 ML SYRINGE SUBCUT SCH (16:55)
[2020-04-08] MEDS: LACTULOSE 20 GM/30 ML UDCUP NG SCH ×2 (00:37→06:12)
[2020-04-08] MEDS: LEVALBUTEROL 1.25 MG/3 ML NEB RESP TX SCH ×5 (00:45→19:22)
[2020-04-08] MEDS: INSULIN LISPRO 100 UNIT/ML SUBCUT SCH ×7 (00:48→23:47)
[2020-04-08] MEDS: DEXTROSE 5% 1,000 ML IV SCH ×3 (03:22→22:06)
[2020-04-08 06:23] LABS: Eosinophils % 0.7 % (0.00-10.9); Hematocrit 26.3 VOL% (35.7-47.0); Immature Granulocytes % 0.4 %; Immature Granulocytes Absolute 0.02 #; Lymphocytes # 0.8 10*3/uL (1.4-4.0); Lymphocytes % 16.8 % (21.3-54.2); Mean Corpuscular HGB Conc 30.4 GM/DL (32-36); Mean Corpuscular Volume 98.9 FL (87-102); Mean Platelet Volume 12.4 FL (9.6-12.0); Monocytes % 2.9 % (1.7-12.7); Neutrophils % 79.2 % (38.7-73.9); Platelet Count 106 T/CUMM (130-400); Red Blood Count 2.66 MC/CUMM (3.8-5.5); Red Cell Distribution Width 12.9 % (9.3-17.3); White Blood Count 4.5 T/CUMM (4-12)
[2020-04-08 06:46] LABS: Calcium 7.9 MG/DL (8.5-10.1); Osmolality,Calculated 301.3 MOS/KG (273-304)
[2020-04-08 06:47] LABS: Anisocytosis 1+; Band Neutrophils 5 % (0-10); Lymphocytes 16 % (20-55); Macrocytosis Slight; Platelet Estimate Adequate; Segmented Neutrophils 74 % (50-85); Total Cells Counted 100
[2020-04-08] MEDS: INSULIN GLARGINE 100 UNIT/ML SUBCUT SCH (09:13)
[2020-04-08] MEDS: METOPROLOL TARTRATE 25 MG TABLET PO SCH ×3 (09:14→20:43)
[2020-04-08] MEDS: ACETAMINOPHEN 325 MG TABLET PO SCH ×4 (09:14→20:43)
[2020-04-08] MEDS: predniSONE 20 MG TABLET PO SCH (09:15)
[2020-04-08] MEDS: PANTOPRAZOLE 40 MG VIAL IV SCH (09:15)
[2020-04-08] MEDS: ASPIRIN EC 81 MG TABLET PO SCH (09:15)
[2020-04-08] MEDS: POTASSIUM CHLORIDE RIDER 10 MEQ in PREMIX 1 EACH IV PRN ×2 (12:32→13:59)
[2020-04-08] MEDS: traMADol 50 MG TABLET PO PRN (14:02)
[2020-04-08] MEDS: DESITIN 4OZ/NYSTATIN 15 GRAM MIXTURE PASTE TOP SCH ×2 (18:14→20:43)
[2020-04-08] MEDS: ENOXAPARIN 30 MG/0.3 ML SYRINGE SUBCUT SCH (19:16)
[2020-04-09] MEDS: LEVALBUTEROL 1.25 MG/3 ML NEB RESP TX SCH ×4 (00:05→20:17)
[2020-04-09] MEDS: DEXTROSE 5% 1,000 ML IV SCH (04:47)
[2020-04-09 06:25] LABS: Eosinophils % 0.6 % (0.00-10.9); Hematocrit 24.6 VOL% (35.7-47.0); Hemoglobin 7.8 GM/DL (12.0-16.0); Immature Granulocytes % 0.4 %; Immature Granulocytes Absolute 0.02 #; Lymphocytes # 0.8 10*3/uL (1.4-4.0); Lymphocytes % 15.1 % (21.3-54.2); Mean Corpuscular HGB Conc 31.7 GM/DL (32-36); Mean Corpuscular Volume 97.6 FL (87-102); Mean Platelet Volume 11.7 FL (9.6-12.0); Monocytes % 4.1 % (1.7-12.7); Neutrophils % 79.8 % (38.7-73.9); Platelet Count 145 T/CUMM (130-400); Red Blood Count 2.52 MC/CUMM (3.8-5.5); Red Cell Distribution Width 12.8 % (9.3-17.3); White Blood Count 5.2 T/CUMM (4-12)
[2020-04-09 06:54] LABS: Eosinophils 2 % (0-10); Hypochromasia 1+; Lymphocytes 12 % (20-55); Microcytosis Slight; Platelet Estimate Adequate; Segmented Neutrophils 83 % (50-85); Total Cells Counted 100
[2020-04-09 06:59] LABS: Osmolality,Calculated 291.7 MOS/KG (273-304)
[2020-04-09 08:10] LABS: Bilirubin,Urine Negative (Negative); Blood, Urine Small mg/dL (Negative); Glucose,Urine (UA) Negative (Negative); Ketones,Urine Negative (Negative); Mucus,Urine Occasional /LPF (Occasional); Nitrite,Urine Negative (Negative); Protein,Urine Negative; RBC,Urine 8 /HPF (0-4); Squamous Epithelial Cell,Urine Occasional /HPF (0-10); Urine Appearance Slightly Hazy (Clear); Urine Color Yellow (Yellow); Urine Specific Gravity 1.006 (1.001-1.035); Urine Urobilinogen < 2.0 EU/DL (0.2-1.0); WBC,Urine 35 /HPF (0-6)
[2020-04-09] MEDS: INSULIN GLARGINE 100 UNIT/ML SUBCUT SCH (08:37)
[2020-04-09] MEDS: INSULIN LISPRO 100 UNIT/ML SUBCUT SCH ×4 (08:37→20:58)
[2020-04-09] MEDS: predniSONE 20 MG TABLET PO SCH (08:38)
[2020-04-09] MEDS: PANTOPRAZOLE 40 MG TABLET PO SCH (08:38)
[2020-04-09] MEDS: ACETAMINOPHEN 325 MG TABLET PO SCH ×4 (08:38→20:57)
[2020-04-09] MEDS: ASPIRIN EC 81 MG TABLET PO SCH (08:38)
[2020-04-09] MEDS: METOPROLOL TARTRATE 25 MG TABLET PO SCH ×3 (08:38→20:57)
[2020-04-09] MEDS: DESITIN 4OZ/NYSTATIN 15 GRAM MIXTURE PASTE TOP SCH ×2 (08:39→21:00)
[2020-04-09] MEDS: levETIRAcetam 500 MG TABLET PO SCH ×2 (08:50→20:57)
[2020-04-09] MEDS ORDERED: LACTULOSE 20 GM/30 ML UDCUP NG SCH (09:00)
[2020-04-09] MEDS ORDERED: LACTULOSE 20 GM/30 ML UDCUP NG PRN (09:14)
[2020-04-09] MEDS: AZTREONAM 1,000 MG in SYRINGE 1 EACH IV SCH ×2 (11:15→23:35)
[2020-04-09 13:45] LABS: Bilirubin,Urine Negative (Negative); Blood, Urine Moderate mg/dL (Negative); Glucose,Urine (UA) Negative (Negative); Ketones,Urine Negative (Negative); Mucus,Urine Occasional /LPF (Occasional); Nitrite,Urine Negative (Negative); Protein,Urine Negative; RBC,Urine 10 /HPF (0-4); Urine Appearance Slightly Hazy (Clear); Urine Color Yellow (Yellow); Urine Specific Gravity 1.008 (1.001-1.035); Urine Urobilinogen < 2.0 EU/DL (0.2-1.0); WBC,Urine 63 /HPF (0-6)
[2020-04-09] MEDS: traMADol 50 MG TABLET PO PRN (15:47)
[2020-04-09] MEDS: NICOTINE 21 MG/24 HR PATCH TRANSDERM PRN (15:48)
[2020-04-09] MEDS: ENOXAPARIN 30 MG/0.3 ML SYRINGE SUBCUT SCH (16:46)
[2020-04-09] MEDS: QUEtiapine 25 MG TABLET PO SCH (20:57)
[2020-04-10] MEDS: LEVALBUTEROL 1.25 MG/3 ML NEB RESP TX SCH ×5 (00:08→19:37)
[2020-04-10 04:25] LABS: Calcium 8.3 MG/DL (8.5-10.1)
[2020-04-10] MEDS: METOPROLOL TARTRATE 25 MG TABLET PO SCH ×3 (08:30→22:10)
[2020-04-10] MEDS: PANTOPRAZOLE 40 MG TABLET PO SCH (08:30)
[2020-04-10] MEDS: DESITIN 4OZ/NYSTATIN 15 GRAM MIXTURE PASTE TOP SCH ×2 (08:30→22:10)
[2020-04-10] MEDS: ASPIRIN EC 81 MG TABLET PO SCH (08:31)
[2020-04-10] MEDS: ACETAMINOPHEN 325 MG TABLET PO SCH ×2 (08:31→14:22)
[2020-04-10] MEDS: TAMSULOSIN 0.4 MG CAPSULE PO SCH (08:32)
[2020-04-10] MEDS: predniSONE 20 MG TABLET PO SCH (08:32)
[2020-04-10] MEDS: QUEtiapine 25 MG TABLET PO SCH ×2 (08:33→22:10)
[2020-04-10] MEDS: INSULIN LISPRO 100 UNIT/ML SUBCUT SCH ×4 (08:34→22:10)
[2020-04-10] MEDS: levETIRAcetam 500 MG TABLET PO SCH ×2 (09:31→22:10)
[2020-04-10] MEDS: INSULIN GLARGINE 100 UNIT/ML SUBCUT SCH (09:32)
[2020-04-10] MEDS: AZTREONAM 1,000 MG in SYRINGE 1 EACH IV SCH (14:20)
[2020-04-10] MEDS ORDERED: ACETAMINOPHEN 325 MG TABLET PO PRN (14:22)
[2020-04-10] MEDS: ENOXAPARIN 30 MG/0.3 ML SYRINGE SUBCUT SCH (18:39)
[2020-04-10] MEDS: NICOTINE 21 MG/24 HR PATCH TRANSDERM PRN (18:43)
[2020-04-11] MEDS: LEVALBUTEROL 1.25 MG/3 ML NEB RESP TX SCH ×2 (01:27→06:53)
[2020-04-11 05:44] VITALS: BP 112/66
[2020-04-11] MEDS: predniSONE 20 MG TABLET PO SCH (08:53)
[2020-04-11] MEDS: ASPIRIN EC 81 MG TABLET PO SCH (08:54)
[2020-04-11] MEDS: PANTOPRAZOLE 40 MG TABLET PO SCH (08:54)
[2020-04-11] MEDS: METOPROLOL TARTRATE 25 MG TABLET PO SCH (08:54)
[2020-04-11] MEDS: TAMSULOSIN 0.4 MG CAPSULE PO SCH (08:54)
[2020-04-11] MEDS: QUEtiapine 25 MG TABLET PO SCH (08:54)
[2020-04-11] MEDS: DESITIN 4OZ/NYSTATIN 15 GRAM MIXTURE PASTE TOP SCH (09:01)
[2020-04-11] MEDS ORDERED: INFLUENZA VIRUS VACCINE 0.5 ML SYRINGE IM ONE (09:37)
[2020-04-11] MEDS: levETIRAcetam 500 MG TABLET PO SCH (10:01)
[2020-04-11] MEDS: INSULIN LISPRO 100 UNIT/ML SUBCUT SCH (10:02)
[2020-04-11] MEDS: INSULIN GLARGINE 100 UNIT/ML SUBCUT SCH (10:02)
[2020-04-11] MEDS ORDERED: LEVALBUTEROL 1.25 MG/3 ML NEB RESP TX ONE (12:46)
[2020-04-11] MEDS ORDERED: FLUCONAZOLE 100 MG TABLET PO SCH (14:00)
== END 2020-04-11 13:25 | disposition home or self-care (01) | DRG 871 ==
LOC: N.ED 12:14 → N.EDINP 15:30 → SUATTDRO 15:30 → N.ICU 16:27 → N.4E 03-28 14:09
PROVIDERS: ADMIT Internal Medicine; ATTEND Emergency Medicine